=== PATIENT | male | born 1985 | race American Indian/Alaskan Native ===

== ENCOUNTER 2017-11-27 01:51 | Emergency (ER) | payer OTHER ==
[2017-11-27] MEDS ORDERED: HYDROmorphone 1 MG/ML Syringe IM ONE (02:25)
[2017-11-27] MEDS ORDERED: Promethazine 25 MG/ML SDV IM ONE (02:26)
--- NOTE | 2017-11-27 02:30 | EDM.PDOC ---
ED HPI GENERAL MEDICAL PROBLEM - General Chief Complaint: ENT Problem Stated Complaint: TOOTH PAIN Time Seen by Provider: 11/27/17 02:25 Source of Information: Reports: Patient History Limitations: Reports: No Limitations - History of Present Illness INITIAL COMMENTS - FREE TEXT/NARRATIVE: 32-year-old male of [place] ancestry presents the ED complaining of severe pain left lower molar tooth that was recently worked on by dentist in [place]. Patient had a filling placed in his left lower first molar tooth. Subsequently he has developed constant severe throbbing pain in this tooth which is not allowed him to sleep the last 3 nights. He has tried Orajel oral Tylenol and Motrin without any relief. The only relief he gets his by drinking cold fluids run over the tooth to distract the pain transiently. Suggest nerve root inflammation or irritation as a result of the procedure. He is currently in [place] this for national [employer] duty. Onset: Gradual Onset Date: 11/24/17 Duration: Day(s):, Constant Location: Reports: Other (Left lower molar tooth.) Quality: Reports: Pressure, Throbbing, Other Severity: Severe (Pounding rates pain as 9 out of 10.) Improves with: Reports: Other (Only improvement he can get his running cold water repeatedly over his tooth as it distracts the pain transiently.) Worsens with: Reports: Eating Context: Denies: Activity, Exercise, Lifting, Sick Contact, Trauma, Other Associated Symptoms: Reports: No Other Symptoms Treatments BARGE PILOT: Reports: Acetaminophen, Cold Therapy, NSAIDS Left Lower Posterior Oral/Mouth Pain Score (Numeric/FACES): 8 - Related Data Allergies Allergy/AdvReac Type Severity Reaction Status Date / Time No Known Allergies Allergy Verified 11/27/17 02:27 Home Meds: Home Meds oxyCODONE HCl/Acetaminophen [Percocet 5-325 mg Tablet] 1 - 2 each PO Q4H PRN # 18 tablet 11/27/17 [Rx] Past Medical History - Past Health History Medical/Surgical History: Denies Medical/Surgical History - Infectious Disease History Infectious Disease History: Reports: Chicken Pox Social & Family History - Family History Family Medical History: Noncontributory - Tobacco Use Smoking Status *Q: Never Smoker - Caffeine Use Caffeine Use: Reports: Coffee - Recreational Drug Use Recreational Drug Use: No - Living Situation & Occupation Occupation: Employed ED ROS GENERAL - Review of Systems Review Of Systems: See Below Constitutional: Reports: Fatigue (From not sleeping at night.), Decreased Appetite. Denies: Fever, Chills, Malaise, Weakness HEENT: Reports: Dental Pain (Severe dental pain constant and throbbing left lower first molar tooth where he had recent dental's procedure) Respiratory: Reports: No Symptoms ( done on the of this month.). Denies: Shortness of Breath, Wheezing, Pleuritic Chest Pain Cardiovascular: Reports: No Symptoms Endocrine: Reports: No Symptoms GI/Abdominal: Reports: No Symptoms : Reports: No Symptoms Musculoskeletal: Reports: No Symptoms Skin: Reports: No Symptoms Neurological: Reports: No Symptoms Psychiatric: Reports: No Symptoms Hematologic/Lymphatic: Reports: No Symptoms Immunologic: Reports: No Symptoms ED EXAM, DIZZINESS - Physical Exam Exam: See Below Exam Limited By: No Limitations General Appearance: Alert, WD/WN, Moderate Distress Eye Exam: Bilateral Eye: Normal Inspection Throat/Mouth: Normal Inspection, Normal Lips, Normal Teeth, Normal Oropharynx, Other (The tooth that is painful is the left lower first molar tooth with recent evidence of filling. It is slightly tender to touch with the tongue blade. The tooth posterior to this as well as intravenous do not seem to be causing any pain. There is no active infection in the gingiva margin surrounding this tooth.) Head Exam: Atraumatic, Normocephalic Neck: Normal Inspection, Supple, Non-Tender, Full Range of Motion Respiratory/Chest: No Respiratory Distress, Lungs Clear, Normal Breath Sounds Cardiovascular: Normal Peripheral Pulses, Regular Rate, Rhythm, No Edema, No Gallop, No Murmur, No Rub GI/Abdominal: Normal Bowel Sounds, Soft, Non-Tender, No Organomegaly Course - Vital Signs Last Recorded V/S: Last Vital Signs Temp 36.2 C 11/27/17 02:01 Pulse 58 L 11/27/17 02:01 Resp 16 11/27/17 02:01 BP 140/94 H 11/27/17 02:01 Pulse Ox 99 11/27/17 02:01 - Radiology Interpretation Free Text/Narrative:: 32-year-old male presents to the ED with severe dental pain left lower molar tooth. Patient had the dentist work on this tooth 5 days ago in [place] where he resides. He is in [place] for [employer] duty this weekend. Pain started on and is constant and throbbing and un relenting. He has tried ampicillin and numerous doses of Motrin and Tylenol without any relief. He has not been able to sleep the last 3 nights. Examination reveals tenderness to palpation of that tooth with tongue bite but no other obvious abnormalities. The history suggests that there is obvious inflammation of the nerve in this tooth. He will require further dental management and will pursue this when he gets back to [place] Tuesday or Tuesday. Because his pain was so bad I gave him an intramuscular injection of Dilaudid 1 mg and Phenergan 25 mg IM. [employer] machine will be used to dispense 18 tablets of Percocet 5/325 will need to tablets every 4-6 hours for pain relief. Departure - Departure Time of Disposition: 02:45 Disposition: Home, Self-Care 01 Condition: Fair Clinical Impression: Pain, dental - Discharge Information Prescriptions: oxyCODONE HCl/Acetaminophen [Percocet 5-325 mg Tablet] 1 - 2 each PO Q4H PRN # 18 tablet PRN Reason: pain relief. Referrals: PCP,None [Primary Care Provider] - Additional Instructions: Evaluation the emergency room this morning in regards to persistent severe pain coming from recently field tooth left lower first molar. You're at the dentist last November 22 and had tooth filled. Since that time you have developed severe pain in the tooth that is only distracted by cold fluids running across the tooth. Topical Orajel did not help indicating that likely there is a root inflammation for which the Orajel could not reach. Examination of the tooth shows nothing obvious to examination with no signs of dental infection in the surrounding gingiva. The history suggests nerve root irritation from the procedure itself. He will need follow-up with his dentist on Tuesday or Tuesday next week for repeat x-rays of this area. In the meantime we did do an IM injection of pain medicine Dilaudid with Phenergan tonight so that you can get some sleep. May use Percocet tabs tomorrow or later today 1-2 every 4-6 hours as needed for pain relief. Of note he should not be driving while under the influence of these pain medications as they can cause sedation and impair coordination and reflexes. Follow-up with dentist early next week when able to make sure there is no infection in the tooth near the root.
== END 2017-11-27 03:10 | disposition home or self-care (01) ==
LOC: JD.ED 01:51
DX: K08.89 Other specified disorders of teeth and supporting structures (principal)
CPT/HCPCS: 96372; 99283; J1170; J2550